=== PATIENT | female | born 1990 | race Caucasian/White ===

== ENCOUNTER 2020-11-15 20:51 | Emergency (ER) | payer BC ==
[~2020-11-15] VITALS: Ht 170.2 cm; Wt 89.5 kg
[~2020-11-15 20:51] MED LIST: MOTRIN800 MG PO; PERCOCET 10/3251 TA1 PO; PRENATAL COMPLE1 TAB PO
[2020-11-15 20:58] VITALS: Ht 170.2 cm; Wt 89.5 kg
[2020-11-15] MEDS ORDERED: ADIPEX-P37.5 MG PO (20:59)
[2020-11-15 21:14] LABS: BASOPHILS 0.3 % (0-2); EOSINOPHILS 1.2 % (0-7); HEMATOCRIT 43.5 % (36.0-48.0); HEMOGLOBIN 14.6 g/dL (12-16); IMMATURE GRANULOCYTES 0.3 % (0-5); LYMPHOCYTE ABS# 2.95 10x3/uL (1.18-3.74); LYMPHOCYTES 26.7 % (15-50); MCH 29.7 pg (26.0-34.0); MCHC 33.6 g/dL (31.0-37.0); MCV 88.4 fL (80.0-100.0); MEAN PLATELET VOLUME 11.8 fL (7.4-10.4); MONOCYTES 7.1 % (2-11); NEUTROPHIL ABS# 7.13 10x3/uL (1.56-6.13); NEUTROPHILS 64.4 % (40-80); PLATELET COUNT 251 10x3/uL (130-400); RBC 4.92 10x6/uL (4.00-5.40); RDW 12.1 % (11.5-14.5); WBC 11.1 10x3/uL (4.8-10.8)
[2020-11-15 21:16] LABS: CALC OSMOLALITY 276 mosm/kg (275-300); CALCIUM 8.9 mg/dL (8.5-10.1); CARBON DIOXIDE 29.6 mmol/L (21.0-32.0); CHLORIDE - SERUM 102 mmol/L (98-107); CREATININE - SERUM 0.9 mg/dL (0.6-1.3); GLUCOSE 105 mg/dL (74-106); POTASSIUM - SERUM 3.5 mmol/L (3.5-5.1); SODIUM 140 mmol/L (136-145); UREA NITROGEN 8 mg/dL (7-18); eGFR NON AFRICAN AMERICAN 78 mL/min (90-120)
[2020-11-15 21:25] LABS: ALBUMIN 3.9 g/dL (3.4-5.0); ALKALINE PHOSPHATASE 60 U/L (30-120); ALT (SGPT) 38 U/L (10-68); AMYLASE - SERUM 30 U/L (25-115); BILIRUBIN - TOTAL 0.57 mg/dL (0.2-1.3); LIPASE 75 U/L (73-393); PROTEIN - SERUM 7.8 g/dL (6.4-8.2)
[2020-11-15 21:26] LABS: TROPONIN-I < 0.017 ng/mL (0.000-0.060)
[2020-11-15 21:48] LABS: BILIRUBIN NEGATIVE (NEGATIVE); KETONE MODERATE mg/dL (NEGATIVE); NITRITE NEGATIVE (NEGATIVE); UROBILINOGEN NORMAL mg/dL (< 2)
[2020-11-15 21:49] LABS: BACTERIA FEW HPF (NONE SEEN); SQUAMOUS EPITHELIAL 0-5 HPF (0-4); WHITE CELLS - URINE 0-5 HPF (0-4)
[2020-11-15 21:55] LABS: HCG URINE NEGATIVE (NEGATIVE)
[2020-11-15] MEDS ORDERED: ZOFRAN ODT4 MG/UDTAB PO (22:53)
[2020-11-15] MEDS ORDERED: HYDROCODONE-AC1 EAC2 PO (22:53)
[2020-11-15 23:12] VITALS: BP 123/86
== END 2020-11-15 23:12 | disposition home or self-care (01) ==
LOC: D.ER 20:51
PROVIDERS: Family Medicine
DX: R10.13 Epigastric pain (principal); R11.0 Nausea; M54.9 Dorsalgia, unspecified

== ENCOUNTER → 2020-11-24 10:45 | Outpatient (CLI) | payer BC ==
[2020-11-15 20:58] VITALS: BMI 30.9
[~2020-11-24 10:45] MED LIST changes: +ADIPEX-P37.5 MG PO; +HYDROCODONE-AC1 EAC2 PO; +ZOFRAN ODT4 MG/UDTAB PO
--- NOTE | 2020-11-24 13:11 | NUR ---
ADMINISTERED 2MG MORPHINE IV PER ORDER. PT TOLERATED WELL
== END | disposition home or self-care (01) ==
LOC: D.NM 10:45
PROVIDERS: ATTEND Nurse Practitioner
DX: R10.11 Right upper quadrant pain (principal)

== ENCOUNTER 2020-12-11 07:23 | Day surgery (SDC) | payer BC, OTHER ==
[~2020-12-11] VITALS: Ht 170.2 cm; Wt 85.7 kg
[2020-12-11 09:25] LABS: HEMATOCRIT 43.8 % (36.0-48.0); HEMOGLOBIN 14.9 g/dL (12-16); MCH 29.7 pg (26.0-34.0); MCHC 34.1 g/dL (31.0-37.0); MEAN PLATELET VOLUME 10.7 fL (7.4-10.4); RBC 5.03 10x6/uL (4.00-5.40); RDW 12.8 % (11.5-14.5); WBC 9.1 10x3/uL (4.8-10.8)
[2020-12-11 09:30] VITALS: BP 118/72; Ht 170.2 cm; Wt 85.7 kg
[2020-12-11 09:38] LABS: HCG SERUM NEGATIVE (NEGATIVE)
[2020-12-11] MEDS ORDERED: TYLENOL W/CODEI1 TAB PO (11:28)
[2020-12-11] MEDS ORDERED: PROTONIX20 MG PO (11:29)
[2020-12-11] MEDS ORDERED: LEVOFLOXACIN500 MG PO (11:29)
--- NOTE | 2020-12-11 17:25 | NUR ---
1300 PT MORE AWAKE AND C/O NAUSEA. NO VOMITTING. RX'D WITH ZOFRAN AND ADDITIONAL LR. AT 1430, AFTER AMBULATING TO BR AND VOIDING WITHOUT DIFFICULTY, PT STATES SHE FEELS READY TO GO HOME AND BACK TO BED. DISCHARGED HOME IN STABLE CONDITION AND WITHOUT C/O
== END 2020-12-11 14:40 | disposition home or self-care (01) ==
LOC: D.OPS 07:23
PROVIDERS: Anesthesiology; ATTEND Surgery
DX: K82.8 Other specified diseases of gallbladder (principal); K81.1 Chronic cholecystitis; R11.0 Nausea; E66.9 Obesity, unspecified; Z68.31 Body mass index [BMI] 31.0-31.9, adult; R10.11 Right upper quadrant pain